=== PATIENT | female | born 1965 | race Caucasian/White ===

== ENCOUNTER 2023-10-31 16:36 | Emergency (ER) | payer OTHER, SELFPAY ==
[2023-10-31 16:39] VITALS: BP 131/93
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
[2023-10-31] MEDS: ZOFRAN ODT (ORALLY DISINTEGRATING) 4 MG PO (17:34)
[2023-10-31] MEDS: FLEXERIL 10 MG PO (17:34)
[2023-10-31] MEDS: TORADOL 30 MG IM (17:35)
== END 2023-10-31 19:23 | disposition home or self-care (01) ==
LOC: EMR 16:36
PROVIDERS: EMERGENCY PHYSICIAN Student in an Organized Health Care Education/Training Program; FAMILY PHYSICIAN Family Medicine
DX: M62.830 Muscle spasm of back (principal); V49.88XA Car occupant (driver) (passenger) injured in other specified transport accidents, initial encounter
CPT/HCPCS: 99284; 96372; 72050; 72110